=== PATIENT | male | born 1995 | race African-American/Black ===

== ENCOUNTER 2016-10-17 21:15 | Emergency (ER) | payer MEDICAID ==
[~2016-10-17] VITALS: Ht 172.7 cm; Wt 64.0 kg
[~2016-10-17 21:15] MED LIST: LISI-360 PO
[2016-10-17 21:19] VITALS: BP 144/80; PULSE 107; RESP 16; TEMP 101.2; O2SAT 94
--- NOTE | 2016-10-17 22:08 | PD ---
HPI Chief Complaint: Cold / Flu Symptoms Time Seen by Provider: 22:05 Travel History International Travel<30 days: No Contact w/Intl Traveler<30days: No Traveled to known affect area: No History of Present Illness HPI 21-year-old black male presents to emergency Department with complaints of fever. He states that he became sick earlier today. When he awoke he noticed that he was running a fever and had general malaise. He states that he had taken medication and went back to bed. He has had subjective fever and chills, headache, congestion, slight cough, myalgias, arthralgias and general malaise. He denies any significant ear pain, shortness of breath, wheezing, nausea, vomiting, diarrhea or abdominal pain. [facility] Past Medical History Narrative Medical Hypertension, denies asthma or diabetes Diminished Hearing: No Tetanus Vaccination: < 5 Years Past Surgical History Surgical History: No Previous Surgery Other Surgery: Yes (UMBILICAL HERNIA) Social History Alcohol Use: Yes Tobacco Use: No Substance Use: No Allergies-Medications (Allergen,Severity, Reaction): Coded Allergies: No Known Allergies (Unverified , 10/17/16) Reported Meds & Prescriptions Reported Meds & Active Scripts Active Lisinopril 10 mg (Lisinopril) 10 Mg Tab 1 Tab PO DAILY Review of Systems Except as stated in HPI: all other systems reviewed are Neg Physical Exam Narrative GENERAL: Well-developed, well-nourished in no acute distress. Nontoxic appearing. HEAD: Normocephalic, atraumatic. EYES: Pupils equal round and reactive. Extraocular motions intact. No scleral icterus. No injection or drainage. ENT: TMs clear without erythema. The external auditory canals clear. Nose: clear . Posterior pharynx is pink and moist. No tonsillar edema or exudate. Uvula midline. Airway patent. NECK: Trachea midline.Supple, nontender, moves head freely. No central bony tenderness or spasm. CARDIOVASCULAR: Regular rate and rhythm without murmurs, gallops, or rubs. RESPIRATORY: Clear to auscultation. Breath sounds equal bilaterally. No wheezes , rales, or rhonchi. GASTROINTESTINAL: Abdomen soft, non-tender, nondistended. No hepato-splenomegaly , or palpable masses. No guarding. EXTREMITIES: No clubbing, cyanosis, or edema. No joint tenderness, effusion, or edema noted. BACK: Nontender without deformity or crepitance. No flank tenderness. Data Data Last Documented VS Vital Signs Date Time Temp Pulse Resp B/P Pulse Ox O2 Delivery O2 Flow Rate FiO2 10/17/16 21:19 101.2 107 16 144/80 94 Room Air Orders Ibuprofen (Motrin) (10/17/16 22:15) MDM Medical Decision Making Medical Screen Exam Complete: Yes Emergency Medical Condition: Yes Medical Record Reviewed: Yes Differential Diagnosis MDM: High Differential diagnoses: Pneumonia, bronchitis, URI, influenza Narrative Course This is an influenza-like illness. Patient is given Motrin 600 mg by mouth. Diagnosis Primary Impression: Influenza-like illness Patient Instructions: General Instructions Departure Forms: School Release, Please excuse from school until (free text option): No school 5 days. Tests/Procedures Additional Instructions: Rest. Increase fluids. Tylenol and Advil alternating every 3-4 hours. Robitussin-DM. No school 5 days. Followup with your Dr. in one week. Return to the ER for any problems. Med/Other Pt SpecificInfo: No Meds Exist/No RX given Disposition: 01 DISCHARGE HOME Condition: Stable Brando Brooks Oct 17, 2016 22:08
[2016-10-17] MEDS ORDERED: IBUPROFEN 600 MG TAB PO ONE (22:15)
== END 2016-10-17 22:22 | disposition home or self-care (01) ==
LOC: NEPB 21:15
DX: R50.9 Fever, unspecified (principal); I10 Essential (primary) hypertension
CPT/HCPCS: 99283